=== PATIENT | female | born 1935 | race Caucasian/White ===

== ENCOUNTER 2021-04-11 19:20 | Observation (INO) | payer MEDICARE, OTHER ==
[~2021-04-11] VITALS: Ht 162.6 cm; Wt 49.9 kg
--- NOTE | 2021-04-11 19:20 | NUR ---
[facility] WA[facility] VIA GURNEY TO BED 07.
[2021-04-11 19:22] VITALS: BP 169/69
--- NOTE | 2021-04-11 19:43 | NUR ---
85 YO F BIBA WITH C/C OF CHOKING. PER EMS PT TOOK CALCIUM VITAMIN AND BEGAN CHOKING. RALES AUSCULATED, PT SATING IN THE 80S PER EMS, PLACED ON 4L O2 SAT 98%. STATES PT IS A&O X4, PT WALKED OUT TO AMB. NO DROOLING. COUGHING PRESENT. HX:TOD BS- [address] ON [address]TE RX: TRULICITY X1/WK NKA DAUGHTER IS AT BEDSIDE, EXPLAINED SAME STORY AT EMS. PT DENIES PAIN, JUST HAS DISCOMFORT IN THROAT, FEELS ROUGH. DAUGHTER STATES PT HAD A COUGH PRIOR TO THIS EVENT, REPORTS PT HAD TB WHEN SHE WAS 38, IS NOW CLEARED BUT HAS LUNG SCARRING. CRACKLES MOSTLY ON R ANT. LUNG FIELD. BS:[id number]
--- NOTE | 2021-04-11 19:56 | NUR ---
TITRATED PT DOWN FROM 4L TO 1L PT AT 99%
--- NOTE | 2021-04-11 20:00 | NUR ---
PT STATES SHE FEELS HER THROAT IS NOW CLEAR, NO DISCOMFORT.
--- NOTE | 2021-04-11 20:01 | NUR ---
ERMD AT BEDSIDE.
--- NOTE | 2021-04-11 20:02 | NUR ---
PT OFF 02 SATING AT 97%, LUNGS CLEAR. RR 22.
--- NOTE | 2021-04-11 20:19 | NUR ---
PER ERMD 12 LEAD WAS DONE ON PT AND CAME BACK SINUS TACHYCARDIA AT 107 HR.
[2021-04-11 20:30] LABS: BASOPHILS # (AUTO) 0.2 K/uL (0.00-0.22); EOSINOPHILS # (AUTO) 0.1 K/uL (0-0.4); EOSINOPHILS % (AUTO) 0.9 % (0.0-4.0); HEMATOCRIT 41.8 % (36-48); HEMOGLOBIN 13.4 g/dL (12.0-16.0); LYMPHOCYTES # (AUTO) 0.5 K/uL (2.5-16.5); LYMPHOCYTES % (AUTO) 3.1 % (20.5-51.1); MEAN CORPUSCULAR HEMOGLOBIN 29 pg (27-31); MEAN CORPUSCULAR HGB CONC 32 g/dL (33-37); MEAN CORPUSCULAR VOLUME 91.7 fL (80-94); MONOCYTES # (AUTO) 0.7 K/uL (0.8-1.0); MONOCYTES % (AUTO) 4.5 % (1.7-9.3); NEUTROPHILS # (AUTO) 13.9 K/uL (1.8-7.7); NEUTROPHILS % (AUTO) 90.5 % (42.2-75.2); PLATELET COUNT (AUTO) 285 K/uL (140-450); RED BLOOD CELL COUNT(AUTO) 4.56 MIL/uL (4.20-5.40); RED CELL DISTRIBUTION WIDTH 13.3 % (11.6-13.7); WHITE BLOOD COUNT (AUTO) 15.3 K/uL (4.8-10.8)
[2021-04-11 20:33] LABS: ANION GAP 15.6 (8-16); CARBON DIOXIDE 27.2 mmol/L (21-32); CHLORIDE 98 mmol/L (98-107); CREATININE 1.4 mg/dL (0.6-1.3); GLUCOSE 325 mg/dL (74-106); POTASSIUM 4.8 mmol/L (3.5-5.1); SODIUM SERUM 136 mmol/L (136-145); UREA NITROGEN, BLOOD 34 mg/dL (7-18)
--- NOTE | 2021-04-11 20:36 | NUR ---
RAD AT BEDSIDE.
--- NOTE | 2021-04-11 21:00 | NUR ---
PT AMBULATED TO WITH DAUGHTER WITH STEADY GAIT AND BACK TO BED. BED LOCKED IN LOWEST POSITION, SIDE RAILS X2.
[2021-04-11] MEDS ORDERED: NACL 0.9% 1,000 ML IV ONE (21:20)
--- NOTE | 2021-04-11 22:09 | NUR ---
PT IS AWAKE AND ALERT, DAUGHTER AT BEDSIDE. VSS. PT IS IN STBALE CONDITION. ALL NEEDS MET AT THIS TIME. BED LOCKED IN LOWEST POSITION, SIDE RAILS X2.
--- NOTE | 2021-04-11 22:54 | NUR ---
LAB AT BEDSIDE.
--- NOTE | 2021-04-11 22:56 | NUR ---
ALIREZA EDGARDO AT BEDSIDE.
[2021-04-11] MEDS ORDERED: AZITHROMYCIN 500 MG in DEXTROSE 5% 250 ML IV ONE (23:10)
[2021-04-11] MEDS ORDERED: cefTRIAXone 1,000 MG VIAL ONE (23:48)
--- NOTE | 2021-04-12 00:11 | NUR ---
CALLED TO REPORT TROP LEVEL OF 0.360 AND ORDER TO RUN URINE D/T IT BEING CLOUDY. NO NEW ORDERS FOR TROP, SAID UA IS OK.
[2021-04-12 00:20] LABS: APPEARANCE,URINE SL CLOUDY (CLEAR); BILIRUBIN,URINE NEGATIVE (NEGATIVE); BLOOD, URINE NEGATIVE (NEGATIVE); COLOR,URINE YELLOW (YELLOW); LEUKOCYTE ESTERASE ,URINE TRACE (NEGATIVE); NITRITE, URINE NEGATIVE (NEGATIVE); PH,URINE 5.5 (5.0-9.0); UGLUCOSE 3+ (NEGATIVE)
[2021-04-12 00:25] LABS: RBC,URINE 0-5 /HPF (0-5); WBC,URINE 20-60 /HPF (0-5)
[2021-04-12] MEDS ORDERED: AZITHROMYCIN 500 MG in DEXTROSE 5% 250 ML IV SCH (00:30)
--- NOTE | 2021-04-12 00:30 | NUR ---
PT TAKEN TO CT.
--- NOTE | 2021-04-12 00:35 | NUR ---
PT BACK FROM CT. DAUGHTER AT BEDSIDE.
[2021-04-12] MEDS ORDERED: AZITHROMYCIN 500 MG INJ VIAL IV ONE (00:36)
--- NOTE | 2021-04-12 00:46 | NUR ---
PT PROVIDED WITH BEDPAN, DAUGHTER IS ASSISTING. ALL NEEDS MET AT THIS TIME.
--- NOTE | 2021-04-12 02:41 | NUR ---
BED HOOPER EMPTIED. PT IS IN STABLE CONDITION. VSS. EQUAL RISE AND FALL OF CHEST WALL. ALL NEEDS MET AT THIS TIME. BED LOCKED IN LOWEST POSITION, SIDE RAILS X2. CALL LIGHT IS WITHIN REACH.
--- NOTE | 2021-04-12 02:48 | NUR ---
UPDATED ON CT BEING NEGATIVE FOR HEMORRHAGE. STATED TO GIVE LOVENOX PER PHARMACY FOR PE AND TO CONSULT CARDIOLOGY. ASKED IF SHE WANTED TO MOVE FOWARD WITH A HEPARIN DRIP, DR. MEDELLIN STATED NO. ORDERS CARRIED OUT.
[2021-04-12] MEDS ORDERED: ED NON STOCK ORDER 1 EA MISC SUBQ ONE ×2 (02:55→03:05)
--- NOTE | 2021-04-12 04:30 | NUR ---
BEDPAN EMPTIED. PT IS AWAKE AND ALERT. VSS. PT IS IN STABLE CONDITION. BED LOCKED IN LOWEST POSITION, SIDE RAILS X2. DAUGHTER AT BEDSIDE.
[2021-04-12] MEDS ORDERED: DULA3PEN SQ (05:45)
[2021-04-12] MEDS ORDERED: ATEN25TA7 PO (06:02)
[2021-04-12] MEDS ORDERED: [UNRECOGNIZED DRUG - CODE] PO (06:02)
[2021-04-12] MEDS ORDERED: AMLO-282 PO (06:02)
[2021-04-12] MEDS ORDERED: PRAV10TA4 PO (06:02)
[2021-04-12 06:24] LABS: ALBUMIN 2.8 g/dL (3.4-5.0); ANION GAP 10.1 (8-16); ASPARTATE AMINOTRANSFERASE 26 U/L (15-37); CARBON DIOXIDE 31.3 mmol/L (21-32); CHLORIDE 105 mmol/L (98-107); GLUCOSE 162 mg/dL (74-106); POTASSIUM 4.4 mmol/L (3.5-5.1); SODIUM SERUM 142 mmol/L (136-145); TOTAL BILIRUBIN 0.4 mg/dL (0.0-1.0); UREA NITROGEN, BLOOD 27 mg/dL (7-18)
[2021-04-12] MEDS ORDERED: DEXTROSE 50% 50 ML SYR IVP PRN ×2 (06:30→09:00)
[2021-04-12 06:37] LABS: BASOPHILS # (AUTO) 0.1 K/uL (0.00-0.22); BASOPHILS % (AUTO) 0.7 % (0.0-2.0); EOSINOPHILS # (AUTO) 0.1 K/uL (0-0.4); EOSINOPHILS % (AUTO) 1.2 % (0.0-4.0); HEMATOCRIT 39.2 % (36-48); HEMOGLOBIN 12.9 g/dL (12.0-16.0); LYMPHOCYTES # (AUTO) 1.9 K/uL (2.5-16.5); LYMPHOCYTES % (AUTO) 15.5 % (20.5-51.1); MEAN CORPUSCULAR HEMOGLOBIN 29 pg (27-31); MEAN CORPUSCULAR HGB CONC 33 g/dL (33-37); MEAN CORPUSCULAR VOLUME 89.7 fL (80-94); MONOCYTES # (AUTO) 1.1 K/uL (0.8-1.0); MONOCYTES % (AUTO) 8.8 % (1.7-9.3); NEUTROPHILS # (AUTO) 8.9 K/uL (1.8-7.7); NEUTROPHILS % (AUTO) 73.8 % (42.2-75.2); PLATELET COUNT (AUTO) 255 K/uL (140-450); RED BLOOD CELL COUNT(AUTO) 4.37 MIL/uL (4.20-5.40); RED CELL DISTRIBUTION WIDTH 12.9 % (11.6-13.7)
--- NOTE | 2021-04-12 06:58 | NUR ---
BED HOOPER EMPTIED. PT IS IN STABLE CONDITION, VSS. ALL NEED MET AT THIS TIME. BED LOCKED IN LOWEST POSITION, SIDE RAILS X2.
--- NOTE | 2021-04-12 07:10 | NUR ---
REPORTED TROP INCREASE,STATES TO CONSULT
--- NOTE | 2021-04-12 07:21 | NUR ---
Pt report given to ETHAN REBOLLAR. Transfer of care at this time.
[2021-04-12] MEDS ORDERED: ZOLPIDEM 5 MG TAB PO PRN (08:00)
[2021-04-12] MEDS ORDERED: DOCUSATE SODIUM 100 MG GELCAP PO PRN (08:00)
[2021-04-12] MEDS ORDERED: HYDROcodone/APAP 5/325 MG 1 TAB TAB PO PRN (08:00)
[2021-04-12] MEDS ORDERED: HEPARIN PER PHARMACY MC PRN (08:00)
[2021-04-12] MEDS ORDERED: LORazepam 2 MG/ML VIAL IM/IVP PRN (08:00)
[2021-04-12] MEDS ORDERED: MORPHINE SULFATE 2 MG/ML SYR IVP PRN (08:00)
[2021-04-12] MEDS ORDERED: POTASSIUM CHLORIDE 10 MEQ TABER PO PRN (08:00)
[2021-04-12] MEDS ORDERED: MAG SULF 2000 MG/WATER PREMIX 50 ML IV PRN (08:00)
[2021-04-12] MEDS ORDERED: SODIUM PHOS / POTASSIUM PHOS 1 PKT PDR PO PRN (08:00)
[2021-04-12] MEDS ORDERED: ACETAMINOPHEN 325 MG TAB PO PRN (08:00)
[2021-04-12] MEDS ORDERED: ONDANSETRON 4 MG/2 ML VIAL IVP PRN (08:00)
--- NOTE | 2021-04-12 08:09 | NUR ---
PT [facility]OUG[facility]
[2021-04-12 08:54] LABS: CHOL/HDL RATIO 3.3 (1-4.5); FREE T4 (FREE THYROXINE) 1.28 ng/dL (0.76-1.46); PHOSPHORUS 4.4 mg/dL (2.5-4.9); THYROID STIMULATING HORMONE 0.93 uIU/mL (0.34-3.74)
[2021-04-12 08:57] LABS: PROTHROMBIN TIME 9.3 secs (10.8-13.4)
[2021-04-12] MEDS: NACL 0.9% 1,000 ML IV SCH ×2 (08:57→19:03)
[2021-04-12] MEDS ORDERED: ENOXAPARIN 30 MG/0.3 ML SYR SUBQ SCH (09:00)
[2021-04-12] MEDS ORDERED: INSULIN LISPRO SLIDING SCALE 100 UNITS/ML VIAL SUBQ PRN (09:00)
[2021-04-12] MEDS ORDERED: hePARIN / DEXT 5% PREMIX 250 ML IV SCH (10:10)
[2021-04-12] MEDS ORDERED: METOPROLOL 25 MG TAB PO ONE (10:35)
[2021-04-12] MEDS ORDERED: ASPIRIN 81 MG TAB.CHEW PO SCH (10:45)
[2021-04-12] MEDS ORDERED: METOPROLOL 25 MG TAB PO SCH (11:00)
[2021-04-12] MEDS: BLOOD GLUCOSE MONITORING 1 DEV DEV FS SCH ×3 (11:06→20:40)
[2021-04-12] MEDS: INSULIN LISPRO SLIDING SCALE 100 UNITS/ML VIAL SUBQ PRN ×2 (11:11→20:39)
--- NOTE | 2021-04-12 16:15 | NUR ---
Patient will be admitted to care of DR MEDELLIN. Admited to TELEMETRY. Will go to room 110A. Belongings list completed. Report to ETHAN PLASENCIA.
--- NOTE | 2021-04-12 16:47 | NUR ---
PT WAS SEEN FOR DYSPHAGIA. PT WAS BALE TO SAFELY SWALLOW MS DIET WITH THIN LIQUID. RECOMMENDATION MS DIET WITH CHOPPED MEAT AND VEG WITH THIN LIQUID
--- NOTE | 2021-04-12 18:34 | NUR ---
patient awake, alert and oriented. Arrived on unit with family, vital signs stable, denies pain and no fever. Safety co measures in place with call light and patient has no further needs.
--- NOTE | 2021-04-12 19:10 | NUR ---
RECEIVED BEDSIDE REPORT FROM DAY SHIFT NURSE. PATIENT IS AWAKE, ALERT, AND COOPERATIVE. DAUGHTER AT BEDSIDE. RESPIRATION EVEN UNLABORED ON ROOM AIR. NO DISTRESS NOTED. SKIN IS WARM AND DRY. IV PATENT AND INTACT. PLAN OF CARE DISCUSSED. ALL SAFETY MEASURES IN PLACE BED IS AT LOW POSITION. CALL LIGHT WITHIN REACH, WILL CONTINUE TO MONITOR.
[2021-04-12 20:00] VITALS: BP 111/55
--- NOTE | 2021-04-12 20:30 | NUR ---
ALL SCHEDULED MEDS WERE GIVEN PER ORDER. WILL CONTINUE TO MONITOR
[2021-04-12] MEDS: METOPROLOL 25 MG TAB PO SCH (20:35)
--- NOTE | 2021-04-12 21:00 | NUR ---
CROTCH PIECE BASTER AT BEDSIDE
[2021-04-13] VITALS: BP 120/77
--- NOTE | 2021-04-13 02:01 | NUR ---
CHECKED ON PATIENT, PATIENT SLEEPING RESPIRATION EVEN UNLABORED ON ROOM AIR. NO DISTRESS NOTED. WILL CONTINUE TO MONITOR
[2021-04-13 04:00] VITALS: BP 130/70
[2021-04-13] MEDS: NACL 0.9% 1,000 ML IV SCH (04:00)
--- NOTE | 2021-04-13 04:30 | NUR ---
PATIENT WOKE UP CONFUSED AND PULLED HER IV, REORIENT PATIENT, AND INSERTED NEW IV SITE TO HER RIGHT FOREARM 24G. TOLERATED IT WELL WILL CONTINUE TO MONITOR.
[2021-04-13 06:25] LABS: BASOPHILS # (AUTO) 0.1 K/uL (0.00-0.22); EOSINOPHILS # (AUTO) 0.3 K/uL (0-0.4); EOSINOPHILS % (AUTO) 2.5 % (0.0-4.0); HEMATOCRIT 41.5 % (36-48); HEMOGLOBIN 13.4 g/dL (12.0-16.0); LYMPHOCYTES # (AUTO) 1.8 K/uL (2.5-16.5); MEAN CORPUSCULAR HEMOGLOBIN 30 pg (27-31); MEAN CORPUSCULAR HGB CONC 32 g/dL (33-37); MEAN CORPUSCULAR VOLUME 91.7 fL (80-94); MONOCYTES # (AUTO) 0.9 K/uL (0.8-1.0); MONOCYTES % (AUTO) 8.3 % (1.7-9.3); NEUTROPHILS # (AUTO) 8.1 K/uL (1.8-7.7); NEUTROPHILS % (AUTO) 72.2 % (42.2-75.2); PLATELET COUNT (AUTO) 259 K/uL (140-450); RED BLOOD CELL COUNT(AUTO) 4.53 MIL/uL (4.20-5.40); RED CELL DISTRIBUTION WIDTH 13.2 % (11.6-13.7); WHITE BLOOD COUNT (AUTO) 11.2 K/uL (4.8-10.8)
[2021-04-13] MEDS: BLOOD GLUCOSE MONITORING 1 DEV DEV FS SCH (06:32)
[2021-04-13 06:58] LABS: ALBUMIN 2.9 g/dL (3.4-5.0); ANION GAP 13.5 (8-16); ASPARTATE AMINOTRANSFERASE 22 U/L (15-37); CARBON DIOXIDE 27.1 mmol/L (21-32); CHLORIDE 107 mmol/L (98-107); CREATININE 1.1 mg/dL (0.6-1.3); GLUCOSE 124 mg/dL (74-106); MAGNESIUM 1.9 mg/dL (1.8-2.4); POTASSIUM 4.6 mmol/L (3.5-5.1); SODIUM SERUM 143 mmol/L (136-145); TOTAL BILIRUBIN 0.5 mg/dL (0.0-1.0); UREA NITROGEN, BLOOD 19 mg/dL (7-18)
--- NOTE | 2021-04-13 07:23 | NUR ---
ENDORSED PATIENT TO DAY SHIFT NURSE FOR CONTINUITY OF CARE
[2021-04-13 08:00] VITALS: BP 133/67
--- NOTE | 2021-04-13 08:57 | NUR ---
PATIENT HAS BEEN SCREENED AND CATEGORIZED HIGH NUTRITION RISK. PATIENT WILL BE SEEN WITHIN 1-2 DAYS OF ADMISSION. 04/13/21 RECEIVED FNS CONSULT FOR POOR PO INTAKE VALERIE MEL[address]
[2021-04-13] MEDS ORDERED: ATORVASTATIN 20 MG TAB PO SCH (09:00)
[2021-04-13] MEDS ORDERED: ECOTRIN 81 MG TABEC PO SCH (09:00)
[2021-04-13] MEDS ORDERED: ASPI-1129 PO (09:11)
[2021-04-13] MEDS: METOPROLOL 25 MG TAB PO SCH (09:23)
--- NOTE | 2021-04-13 11:15 | NUR ---
Writtena and verbal discharge instructions provided to patient and daughter Vee, who verbalized understanding and able to repeat back instructions. IV removed, cannula intact, site covered with dry dressing and tape.
--- NOTE | 2021-04-13 11:35 | NUR ---
Patient discharged at this time, ambulated off unit with daughter. Declines wheelchair. All belongings with patient upon departure.
--- NOTE | 2021-04-13 14:13 | NUR ---
DC PLANNING: CM MET WITH THE PATIENT AND HER DAUGHTER OMAR AT BEDSIDE. THE PATIENT LIVE WITH HER DAUGHTER AND DAUGHTERS SPOUSE IN A SINGLE STORY HOUSE. SHE IS ABLE TO AMBULATE WITHOUT LIMITATIONS AND USES A CANE OR FWW WITH A SEAT WHEN AMBULATING. SHE REQUIRES STAND BY ASSIST WITH ADL'S, THE PATIENTS SON IN LAW PROVIDES OVERSIGHT FOR HER CARE AND TRANSPORTATION NEEDED THE PATIENTS DAUGHTER WORKS. THE PATIENT IS DIABETIC AND HAS A GLUCOMETER AND SHE CHECKS HER BS'S BID. THE PATIENT HAS BEEN ON SERVICE WITH HOME HEALTH BUT NEITHER THE PATIENT OR DAUGHTER CAN REMEMBER THE AGENCY NAME, STATES THEY WILL CALL CM WITH THAT INFORMATION. THE PATIENT SEES HER PCP REGULARLY AND HAS RECENTLY BEEN REFERRED TO A PODIATRY, REGISTERED MAIL CLERK, SIGN LANGUAGE TRANSLATOR, VETERINARIAN ASSISTANT AND DIRECTOR INSURANCE. DC PLAN IS FOR THE PATIENT TO RETURN HOME WITH FAMILY, CM WILL FOLLOW FOR NEEDS.
== END 2021-04-13 11:40 | disposition home or self-care (01) ==
LOC: MED 19:20 → MTU 23:14 → MED 23:14 → MTU 04-12 14:51
PROVIDERS: ADMIT Family Medicine; ATTEND Family Medicine
DX: A41.9 Sepsis, unspecified organism (principal); I21.A1 Myocardial infarction type 2; N39.0 Urinary tract infection, site not specified; J69.0 Pneumonitis due to inhalation of food and vomit; R79.89 Other specified abnormal findings of blood chemistry; E43 Unspecified severe protein-calorie malnutrition; E11.65 Type 2 diabetes mellitus with hyperglycemia; I10 Essential (primary) hypertension; E78.5 Hyperlipidemia, unspecified; Z79.899 Other long term (current) drug therapy
CPT/HCPCS: 36415; 70450; 71045; 80048; 80053; 80061; 81001; 82150; 82948; 83036; 83690; 83735; 83880; 84100; 84439; 84443; 84484; 85025; 85610; 85730; 87081; 87086; 92610; 93005; 93307; 96361; 96365; 96367; 96372; 97163; 97164; 99285; G0378; J0456; J0696; J1650; Q0092